=== PATIENT | female | born 1985 | race Caucasian/White ===

== ENCOUNTER 2024-05-19 10:46 | Outpatient (CLI) | payer OTHER, SELFPAY ==
[2024-05-20 22:42] LABS: HPV Source Cervix; HPV, High Risk by TMA Not Detected
== END 2024-05-19 10:47 | disposition home or self-care (01) ==
PROVIDERS: Visit Provider Physician Assistant
DX: Z12.4 Encounter for screening for malignant neoplasm of cervix (principal); Z13.6 Encounter for screening for cardiovascular disorders; Z13.1 Encounter for screening for diabetes mellitus; Z13.29 Encounter for screening for other suspected endocrine disorder
CPT/HCPCS: 80061; 82947; 84443; 87624; 87625; 88141; 88142